=== PATIENT | female | born 1960 | race Caucasian/White ===

== ENCOUNTER 2021-09-21 11:07 | Outpatient (REF) | payer OTHER, SELFPAY ==
--- NOTE | 2021-09-21 10:30 | PAPFT_PTH ---
PATIENT: Laura Jeffries LOC: [facility] U#:[id number] AGE/SX: 61/F ROOM: RE09/21/[address]: Yvonne Nair : 1960 BED: DIS: 09/21/2021 SPEC #: [id number] RECD: 09/24/21 13:08 STATUS: ANEESH REHarlan #: [id number] PRINCE: 09/21/21 10:[address]: Yvonne Nair DEPT: [facility] Cytology RECD BY: Effie Spencer ENTERED: 09/24/21 13:08 SP TYPE: PAPFT OTHR DR: John Javier Tissues: 1 - CX/ENDOCX FOR PAP SMEARS Procedures: PAP THIN PREP/UVM Screening HPV DNA PROBE Comments: [id number]
[2021-09-21 20:45] LABS: ALT 29 U/L (14-59); AST 16 U/L (15-37); Albumin 4.2 g/dL (3.4-5.0); Alkaline Phosphatase 58 U/L (46-116); Anion Gap 7.9 mmol/L (3-11); BUN 14 mg/dL (7-18); Bilirubin, Total 0.6 mg/dL (0.2-1.0); CO2 30.1 mmol/L (21.0-32.0); CREATININE 0.8 mg/dL (0.55-1.02); Calcium 9.3 mg/dL (8.5-10.1); Chloride 104 mmol/L (98-107); Glucose 97 mg/dL (74-106); LDL CHOLESTEROL 131 mg/dL (<100); Potassium 4.9 mmol/L (3.5-5.1); Sodium 142 mmol/L (136-145); Total Protein 7.7 g/dL (6.4-8.2)
== END 2021-09-21 11:08 | disposition home or self-care (01) ==
LOC: NCHCN 11:07
PROVIDERS: PCP Internal Medicine; Visit Provider Physician Assistant
DX: R73.03 Prediabetes (principal); E66.3 Overweight; Z12.4 Encounter for screening for malignant neoplasm of cervix; Z11.51 Encounter for screening for human papillomavirus (HPV)
CPT/HCPCS: 80053; 83721; 88142; 87624

== ENCOUNTER 2022-03-22 19:39 | Outpatient (REF) | payer OTHER, SELFPAY | END 2022-03-22 19:40 | disposition home or self-care (01) | LOC: NCHCN 19:39 | PROVIDERS: PCP Internal Medicine; Visit Provider Physician Assistant | CPT/HCPCS: 80061 ==

== ENCOUNTER 2022-03-29 19:02 | Outpatient (REF) | payer OTHER, SELFPAY ==
[2022-03-29 19:28] LABS: Calculated LDL 116 mg/dL (<100); Cholesterol 183 mg/dL (<200); HDL Cholesterol 44 mg/dL (40-60); Triglyceride 117 mg/dL (<150)
== END 2022-03-29 19:03 | disposition home or self-care (01) ==
LOC: NCHCN 19:02
PROVIDERS: PCP Internal Medicine; Visit Provider Physician Assistant
DX: R73.03 Prediabetes (principal); E78.5 Hyperlipidemia, unspecified
CPT/HCPCS: 80061

== ENCOUNTER 2022-09-24 20:52 | Outpatient (REF) | payer OTHER, SELFPAY ==
[2022-09-24 19:44] LABS: ALT 25 U/L (14-59); AST 20 U/L (15-37); Albumin 4.2 g/dL (3.4-5.0); Alkaline Phosphatase 52 U/L (46-116); Anion Gap 7.7 mmol/L (3-11); BUN 14 mg/dL (7-18); Bilirubin, Total 0.7 mg/dL (0.2-1.0); CO2 28.3 mmol/L (21.0-32.0); CREATININE 0.8 mg/dL (0.55-1.02); Calcium 9.2 mg/dL (8.5-10.1); Calculated LDL 121 mg/dL (<100); Chloride 102 mmol/L (98-107); Cholesterol 189 mg/dL (<200); Estimated GFR 83.78 (mL/min/1.73m2); Glucose 106 mg/dL (74-106); HDL Cholesterol 50 mg/dL (40-60); Potassium 4.4 mmol/L (3.5-5.1); Sodium 138 mmol/L (136-145); Total Protein 8.2 g/dL (6.4-8.2); Triglyceride 91 mg/dL (<150)
== END 2022-09-24 20:53 | disposition home or self-care (01) ==
LOC: NCHCN 20:52
PROVIDERS: PCP Internal Medicine; Visit Provider Physician Assistant
DX: E66.3 Overweight (principal); R73.03 Prediabetes; Z00.00 Encounter for general adult medical examination without abnormal findings
CPT/HCPCS: 80053; 80061

== ENCOUNTER 2022-12-16 11:45 | Day surgery (SDC) | payer OTHER, SELFPAY ==
--- NOTE | 2022-12-16 11:03 | ANES.PREOP_ITS ---
General Info Date of Service Date Performed: 12/16/22 Height: 5 ft 4 in Weight: 84.368 kg Body Mass Index (BMI): 31.9 Surgical Procedure: Operation Date: 12/16/22 15:40 Proposed Procedure Side Surgeon p Cataract Extraction with IOL Implant Left Sage Carrington MD Meds Allergies and Home Medications Allergies Allergy/AdvReac Type Severity Reaction Status Date / Time No Known Allergies Allergy Unverified 12/13/22 12:08 Home Medication Medication Instructions Recorded naproxen sodium 220 mg tablet 440 mg PO DIRECTED PRN 12/12/22 (Aleve) triamcinolone acetonide 0.1 % 1 applic topical BID PRN 12/12/22 topical cream psyllium packet 12/16/22 Current Visit Medications: Current Medications Generic Name Dose Route Start Last Admin Trade Name Freq PRN Reason Stop Dose Admin Acetaminophen 1,000 mg 12/16/22 06:00 Acetaminophen 500 Mg Tab PO Q4H PRN PRN Miscellaneous Medication 0 ml 12/16/22 06:00 Tropicam./Phenyleph. (1/2.5%) 5 Ml Btl OS DIRECTED LORENZO Miscellaneous Medication 0 ml 12/16/22 06:00 Prednisolone 1%, Moxifloxacin 0.5%, Nepafenac 0.1% 5ml Btl OS DIRECTED LORENZO Tetracaine HCl 0 ml 12/16/22 06:00 Tetracaine 0.5% 4 Ml Btl OS DIRECTED LORENZO PFSH Active Problems Active Problems: Problem Status Onset Code Nuclear sclerotic cataract of left eye H25.12 Medical History Medical History (Updated 12/15/22 @ 12:51 by Sage Carrington MD) COVID 11/23/22 Hx of smoking Prediabetes Vaginal prolapse Surgical History Surgical History (Updated 12/13/22 @ 12:07 by Emilio Huitron) Hx of cholecystectomy Hx of eye surgery macular hole repair Hx of tubal ligation Tobacco Smoking/Tobacco Use Status: Current every day Tobacco Type: cigarettes Alcohol Alcohol Intake: never Substance Use Substance use: Never Substance use type: does not use Vital Signs and Lab Results Lab Results Blood Type / Crossmatch: No Data to Display Complete Blood Count: No Data to Display Complete Metabolic Panel: No Data to Display Liver Function Panel: No Data to Display Coagulation Panel: No Data to Display Cardiac Panel: No Data to Display Arterial Blood Gas: 2 No Data to Display Venous Blood Gas: No Data to Display Pancreas Panel: No Data to Display Thyroid Panel: No Data to Display Infectious Disease: No Data to Display Blood Cultures: No Data to Display Toxicology Panel: No Data to Display Anesthesia Assessment and Plan Anesthesia History Personal History: No History of Anesthesia Complications Family History: No Family History of Anesthesia Complications Exercise Tolerance Exercise Tolerance: Metabolic Equivalents>4 Cardiac & Pulmonary Exam Cardiac Exam: Normal S1/S2 Heart Sounds Pulmonary Exam: Clear Bilateral Breath Sounds Implantable Cardiac Device Does patient have a Pacemaker or an ICD?: No Airway Exam Known Difficult Airway: No Mallampati Class: 2 Mouth Opening: Normal (> 3cm) Thyromental Distance: Greater than 3 cm Neck Range of Motion: Full ROM Neck Circumference: Normal Teeth Condition: Removable Dentures/Plates Upper, Removable Dentures/Plates Lower and Edentulous ASA Classification ASA Score: ASA 2 Emergency Case?: No NPO Status NPO Status: NPO Clears >2 hours, Solids >8 hours Anesthesia Plan Resuscitation Status: Full Code Anesthesia Technique: MAC Anesthesia Airway Planned: Natural Airway Monitors Used: Standard Monitors Preoperative Comments:: 62 yo female for cataract removal. Sig PMHx: preDM (last a1c <5.), COVID (11/23/22), daily smoker, never ETOH.
[2022-12-16 12:26] VITALS: BP 152/68; PULSE 77; RESP 16; TEMP 36.3; O2SAT 100
[2022-12-16 12:37] VITALS: BMI 31.9
[2022-12-16] MEDS: Tropicam./Phenyleph. (1/2.5%) 5 ML BTL OS ×3 (12:40→12:50)
[2022-12-16] MEDS: Trypan Blue 0.06% 0.5 ML SYR (13:30)
[2022-12-16] MEDS: Tetracaine 0.5% 4 ML BTL OS (13:31)
[2022-12-16] MEDS: Duovisc Viscoelastic System EACH 1 EACH (13:32)
[2022-12-16] MEDS: Balanced Salt Soln.-PLUS 500 ML BAG (13:32)
[2022-12-16] MEDS: Lidocaine 1% Pres-Free 5 ML VIAL (13:33)
[2022-12-16] MEDS: Lidocaine 2% Jelly 6 ML SYR (13:33)
[2022-12-16] MEDS: Povidone-Iodine Ophth 30 ML BTL (13:34)
[2022-12-16 14:00] VITALS: BP 134/53; PULSE 76; RESP 16; TEMP 36.6; O2SAT 98
--- NOTE | 2022-12-16 14:02 | W.PM.DSUDISC ---
Date of service: 12/16/22 Time of Service: 14:02 Discharge Plan Disposition Patient Disposition: Home Discharge Details Attending Provider: Sage Carrington Primary Care Provider: John Javier Home Meds and New Rx's Prescriptions: No Action triamcinolone acetonide 0.1 % cream 1 applic TOPICAL BID PRN Patient Comments: APPLY A SMALL AMOUNT TO AFFECTED AREA(S) TWO TIMES A DAY FOR UP TO 2 WEEKS, IF RESOLVES MORE QUICKLY, STOP THE CREAM naproxen sodium [Aleve] 220 mg Tablet 440 mg PO DIRECTED PRN Metamucil Packet Discharge Instructions Stand Alone Forms: Post-op Topical Cataract, Julian Burrelley (DSU) Discharge Orders Discharge Orders: Discharge Order (Routine); Ordered 12/16/22 Ordered By: Sage Carrington DS: Diagnosis Discharge Diagnosis (1) Posterior subcapsular age-related cataract of left eye: Status: Resolved (2) Nuclear sclerotic cataract of left eye: Status: Resolved
--- NOTE | 2022-12-16 14:03 | ROE_ITS ---
Date of service: 12/16/22 Time of Service: 14:03 Operative Note Operative Note DATE OF PROCEDURE: 12/16/22 PRE-OP DIAGNOSIS: Nuclear cataract, left eye Status post pars plana vitrectomy/endolaser/gas, left eye POST-OP DIAGNOSIS: same PROCEDURE: Cataract extraction using phacoemulsification with intraocular lens implant, left eye, using capsular staining with Vision Blue Implantation of capsular tension ring, left eye SURGEON: Sage Carrington ANESTHESIA TYPE: Local By Surgeon and MAC Refer to Anesthesia Record COMPLICATIONS: None Patient was transported to: same day Patient's condition: stable Implants: Júnior and Júnior /Júnior and Júnior Sensar AR40e Morcher Type 15B capsular tension ring Indications: Progressive decreased vision due to cataract, left eye, with poor red reflex Procedure Description: CATARACT SURGERY OPERATIVE REPORT PREOPERATIVE DIAGNOSIS: 1. Nuclear cataract, left eye 2. Poor red reflex secondary to #1 POSTOPERATIVE DIAGNOSIS: Same OPERATION: 1. Cataract extraction using phacoemulsification with posterior chamber intraocular lens implant, left eye. 2. Capsular staining with Vision Blue 3. Implantation of capsular tension ring, left eye IOL: IOL Nipple Threader/Model: Júnior and Júnior Sensar AR40e IOL Power: + 11.0 diopters IOL Serial Number: [id number] Optic Diameter: 6.0 mm Haptic/Overall Diameter: 13.0 mm PHACO INFO: Luis Carlos [employer] Vision System with OZil and Active Fluidics Cumulative Dispersed Energy (CDE): 11.96 seconds SURGEON: Sage Carrington MD, PAN ANESTHESIA: Monitored A [facility] ([facility] [place]), with local sub-tenon's anesthetic infiltration COMPLICATIONS: None SPECIMENS: None INDICATIONS FOR PROCEDURE: The patient is a 62-year-old lady with history of high myopia who is previously suffered a retinal detachment in the left eye and has undergone pars plana vitrectomy/endolaser/gas in 2019. She has now developed a dense nuclear cataract in the left eye. She desires cataract surgery and attempt to improve and maximize her vision, although she understands that postoperative visual acuity will be limited by the presence of her pre-existing retinal detachment. The option of cataract surgery was offered to the patient and she wished to proceed. PROCEDURE: The correct surgical eye was identified and marked as the left eye and the pupil was dilated in the preoperative area using mydriatics and cyclopl egics. The dilated pupil size was 6.5 mm. Oral sedation was administered in the form of an Imprimis MKO Melt (midazolam 3mg/ketamine 25mg/ondansetron 2mg). The patient was brought to the operating room where cardiopulmonary monitoring was instituted and surgical time-out was performed, confirming the correct operative eye and IOL power. Topical anesthesia was administered and ophthalmic povidone-iodine 5% was instilled into the conjunctival fornices. Lidocaine gel was applied to the cornea and the carmel-ocular area was prepped with Betadine 10% solution and draped in the usual sterile fashion for intraocular surgery, including an aperture drape. A Tegaderm transparent film dressing was cut in half and used to cover the lashes and lid margins. Care was taken to sequester the lashes and lid margins under the Tegaderm dressing. A lid speculum was placed between the lids of the operative eye and the Luis Carlos LuxOR Revalia operating microscope was maneuvered into position. Adelfo scissors were then used to make a conjunctival buttonhole approximately 6mm posterior to the limbus in the inferonasal quadrant. Blunt dissection was carried out to expose bare sclera, and a blunt-tipped sub-tenon?s anesthesia cannula was introduced and passed posteriorly along the globe where non- preserved plain lidocaine was injected into posterior sub-Tenon?s space. A sideport knife was used to make a paracentesis port superiorly/superiortemporally. Intraocular phenylephrine/lidocaine was injected int the anterior chamber.. Air was then injected into the anterior chamber, followed by Vision Blue, which was painted over the anterior capsule and then irrigated out using BSS. The anterior chamber was filled with viscoelastic. A keratome knife was used to create a 2-plane near clear corneal tunnel extending approximately 2 mm into clear cornea temporally. A flap was raised on the anterior capsule and capsulorhexis forceps were used to complete a continuous curvilinear capsulorhexis of 5.0 mm. The capsule was noted to be extremely thin with significant generalized zonular laxity. The anterior chamber was very deep. Balanced salt solution was then used to perform cortical cleaving hydrodissection and nuclear hydrodelineation until the lens could be freely rotated within the capsular bag. The lens nucleus was then disassembled and removed within the capsular bag and iris plane using phacoemulsification. Residual cortical material was removed using the 45-degree angled silicone I/A tip with 0.3mm port. The posterior capsule was carefully polished to remove as much residual lens epithelial cells as safely possible. The capsular bag was then inflated and the anterior chamber deepened with viscoelastic and the main incision enlarged slightly. A Morcher Type 15B capsular tension ring was inserted into the capsular bag. The lens implant described above was inserted into the capsular bag using the MARY [place] Injector. A Kuglen hook was used to dial the IOL into position. Residual viscoelastic was then removed first from posterior to the IOL, then from the anterior chamber using the I/A handpiece. The lens implant was noted to center nicely within the capsular bag. The incisions were stromally hydrated, and the anterior chamber was reformed using BSS. Then 0.5cc of moxifloxacin 1.0mg/ml were injected into the capsular bag and anterior chamber. The incis ions were checked with a Weck spear and found to be secure. Several drops of ophthalmic povidone-iodine 5% were then applied to the eye followed by two drops of Imprimis combination prednisolone/moxifloxacin/nepafenac solution. The drapes were removed and a clear plastic protective eye shield was placed over the eye. The patient was then returned to Same Day Surgery in stable condition.
[2022-12-16 14:21] VITALS: BP 146/73; PULSE 77; RESP 16; TEMP 36.5; O2SAT 97
--- NOTE | 2022-12-16 14:25 | W.ANESPOSTOP ---
Postoperative Evaluation Date, Time and Location Date Performed: 12/16/22 Time Performed: 14:25 Patient Location: Day Surgery Unit Vital Signs Most Recent Imported Vital Signs: Most Recent Vital Signs Temp Pulse Resp BP Pulse Ox 36.6 C 76 16 134/53 L 98 12/16/22 14:00 12/16/22 14:00 12/16/22 14:00 12/16/22 14:00 12/16/22 14:00 Pain Score Most Recent Pain Score: Most Recent Pain Score Pain Level 0 12/16/22 14:00 Assessment Mental Status: Awake (Alert & Oriented to Patient Baseline) Airway and Respiratory Function: Patent airway with normal (patient baseline) respiratory exam Cardiovascular Function: Hemodynamically Stable Hydration Status: Adequately Hydrated Nausea & Vomiting: No Nausea or Vomiting Pain: Pt. Denies Any Pain Peripheral Nerve Block: Patient did not receive a nerve block
== END 2022-12-16 14:33 | disposition home or self-care (01) ==
PROVIDERS: PCP Internal Medicine; Visit Provider Ophthalmology
PROC: (CPT 66982; principal; 2022-12-16 15:30)
DX: H25.042 Posterior subcapsular polar age-related cataract, left eye (principal); H26.8 Other specified cataract
CPT/HCPCS: 66982; V2632

== ENCOUNTER 2022-12-30 10:59 | Day surgery (SDC) | payer OTHER, SELFPAY ==
--- NOTE | 2022-12-30 07:02 | ANES.PREOP_ITS ---
General Info Date of Service Date Performed: 12/30/22 Height: 5 ft 4 in Weight: 84.5 kg Body Mass Index (BMI): 31.9 Surgical Procedure: Operation Date: 12/30/22 14:40 Proposed Procedure Side Surgeon p Cataract Extraction with IOL Implant Right Sage Carrington MD Meds Allergies and Home Medications Allergies Allergy/AdvReac Type Severity Reaction Status Date / Time No Known Allergies Allergy Unverified 12/30/22 11:28 Home Medication Medication Instructions Recorded naproxen sodium 220 mg tablet 440 mg PO DIRECTED PRN 12/12/22 (Aleve) triamcinolone acetonide 0.1 % 1 applic topical BID PRN 12/12/22 topical cream psyllium 1 packet PO DIRECTED 12/16/22 Current Visit Medications: Current Medications Generic Name Dose Route Start Last Admin Trade Name Freq PRN Reason Stop Dose Admin Acetaminophen 1,000 mg 12/30/22 06:00 Acetaminophen 500 Mg Tab PO Q4H PRN PRN Miscellaneous Medication 0 ml 12/30/22 06:00 Tropicam./Phenyleph. (1/2.5%) 5 Ml Btl OD DIRECTED [facility] Miscellaneous Medication 0 ml 12/30/22 06:00 Prednisolone 1%, Moxifloxacin 0.5%, Nepafenac 0.1% 5ml Btl OD DIRECTED LORENZO Tetracaine HCl 0 ml 12/30/22 06:00 Tetracaine 0.5% 4 Ml Btl OD DIRECTED [facility] PFSH Active Problems Active Problems: Problem Status Onset Code Nuclear age-related cataract, right eye H25.11 Posterior subcapsular age-related cataract of left eye H25.042 Nuclear sclerotic cataract of left eye H25.12 Medical History Medical History COVID 11/23/22 Hx of smoking Prediabetes Vaginal prolapse Surgical History Surgical History Hx of cholecystectomy Hx of eye surgery macular hole repair Hx of tubal ligation Tobacco Smoking/Tobacco Use Status: Current every day Tobacco Type: cigarettes Smoking cigarettes per day: 10 Alcohol Alcohol Intake: never Substance Use Substance use: Never Substance use type: does not use Vital Signs and Lab Results Vital Signs Most Recent Vital Signs in EMR: Temp Pulse Resp BP Pulse Ox 36.5 C 82 16 135/70 97 12/30/22 11:35 12/30/22 11:35 12/30/22 11:35 12/30/22 11:35 12/30/22 11:35 Lab Results Blood Type / Crossmatch: No Data to Display Complete Blood Count: No Data to Display Complete Metabolic Panel: No Data to Display Liver Function Panel: No Data to Display Coagulation Panel: No Data to Display Cardiac Panel: No Data to Display Arterial Blood Gas: No Data to Display Venous Blood Gas: No Data to Display Pancreas Panel: No Data to Display Thyroid Panel: No Data to Display Infectious Disease: No Data to Display Blood Cultures: No Data to Display Toxicology Panel: No Data to Display Anesthesia Assessment and Plan Anesthesia History Personal History: No History of Anesthesia Complications Family History: No Family History of Anesthesia Complications Exercise Tolerance Exercise Tolerance: Metabolic Equivalents>4 Cardiac & Pulmonary Exam Cardiac Exam: Normal S1/S2 Heart Sounds Pulmonary Exam: Clear Bilateral Breath Sounds Implantable Cardiac Device Does patient have a Pacemaker or an ICD?: No Airway Exam Known Difficult Airway: No Mallampati Class: 2 Mouth Opening: Normal (> 3cm) Thyromental Distance: Greater than 3 cm Neck Range of Motion: Full ROM Neck Circumference: Normal Teeth Condition: Removable Dentures/Plates Upper, Removable Dentures/Plates Lower and Edentulous ASA Classification ASA Score: ASA 2 Emergency Case?: No NPO Status NPO Status: NPO Clears >2 hours, Solids >8 hours Anesthesia Plan Resuscitation Status: Full Code Anesthesia Technique: MAC Anesthesia Airway Planned: Natural Airway Monitors Used: Standard Monitors Preoperative Comments:: 62 yo female for repeat cataract removal. no health history change. Sig PMHx: preDM (last a1c <5.), COVID (11/23/22), daily smoker, never ETOH. previous cat: had MKO. would like MKO.
[2022-12-30 11:31] VITALS: BMI 31.9
[2022-12-30] MEDS: Tropicam./Phenyleph. (1/2.5%) 5 ML BTL OD ×3 (11:34→11:55)
[2022-12-30 11:35] VITALS: BP 135/70; PULSE 82; RESP 16; TEMP 36.5; O2SAT 97
[2022-12-30] MEDS: Tetracaine 0.5% 4 ML BTL OD (12:44)
[2022-12-30] MEDS: Duovisc Viscoelastic System EACH 1 EACH (12:45)
[2022-12-30] MEDS: Balanced Salt Soln.-PLUS 500 ML BAG (12:45)
[2022-12-30] MEDS: Lidocaine 2% Jelly 6 ML SYR (12:47)
[2022-12-30] MEDS: Phenylephrine/Lidocaine (15/10) MG/ML 1 ML VIAL (12:47)
[2022-12-30] MEDS: Povidone-Iodine Ophth 30 ML BTL (12:48)
[2022-12-30 13:01] VITALS: BP 130/68; PULSE 76; RESP 16; TEMP 36.1; O2SAT 97
--- NOTE | 2022-12-30 13:02 | W.PM.DSUDISC ---
Date of service: 12/30/22 Time of Service: 13:02 Discharge Plan Disposition Patient Disposition: Home Discharge Details Attending Provider: Sage Carrington Primary Care Provider: John Javier Home Meds and New Rx's Prescriptions: No Action triamcinolone acetonide 0.1 % cream 1 applic TOPICAL BID PRN Patient Comments: APPLY A SMALL AMOUNT TO AFFECTED AREA(S) TWO TIMES A DAY FOR UP TO 2 WEEKS, IF RESOLVES MORE QUICKLY, STOP THE CREAM naproxen sodium [Aleve] 220 mg Tablet 440 mg PO DIRECTED PRN Metamucil Packet 1 packet PO DIRECTED Discharge Instructions Stand Alone Forms: Post-op Topical Cataract, Julian Huitron (DSU) Discharge Orders Discharge Orders: Discharge Order (Routine); Ordered 12/30/22 Ordered By: Sage Carrington DS: Diagnosis Discharge Diagnosis (1) Nuclear age-related cataract, right eye: Status: Resolved
--- NOTE | 2022-12-30 13:03 | ROE_ITS ---
Date of service: 12/30/22 Time of Service: 13:03 Operative Note Operative Note DATE OF PROCEDURE: 12/30/22 PRE-OP DIAGNOSIS: Nuclear cataract, right eye high myopia, right eye POST-OP DIAGNOSIS: same PROCEDURE: Cataract extraction using phacoemulsification with intraocular lens implant, right eye SURGEON: Sage Carrington ANESTHESIA TYPE: Local By Surgeon and MAC Refer to Anesthesia Record ESTIMATED BLOOD LOSS: 0 PATHOLOGY: none sent COMPLICATIONS: None Patient was transported to: same day Patient's condition: stable Implants: Júnior & Júnior Sensar AR40e Indications: Progressive visual loss due to cataract, right eye Procedure Description: CATARACT SURGERY OPERATIVE REPORT PREOPERATIVE DIAGNOSIS: 1. Nuclear cataract, right eye 2. High myopia, right eye POSTOPERATIVE DIAGNOSIS: Same OPERATION: 1. Cataract extraction using phacoemulsification with posterior chamber intraocular lens implant, right eye. IOL: IOL Virtual Reality Specialist/Model: Júnior & Júnior Sensar AR40e IOL Power: + 6.5 diopters IOL Serial Number: [id number] Optic Diameter: 6.0mm Haptic/Overall Diameter: 13.0mm PHACO INFO: Luis Carlos All My Dataurion Vision System with OZil and Active Fluidics Cumulative Dispersed Energy (CDE): 2.31 seconds SURGEON: Sage Carrington MD, PAN ANESTHESIA: Monitored Anesthesia Care (MAC), with local sub-tenon's anesthetic infiltration COMPLICATIONS: None SPECIMENS: None INDICATIONS FOR PROCEDURE: The patient is a 62-year-old lady with history of high myopia who has previously undergone pars plana vitrectomy in her left eye and subsequently developed a significant cataract. She underwent cataract surgery in the left eye with p ostoperative refractive target of -2.75 diopters. Originally, her myopic refraction was over -10 diopters. She now has significant anisometropia and presents for cataract surgery in the right eye, with postoperative refractive target of -2.75 diopters. PROCEDURE: The correct surgical eye was identified and marked as the right eye and the pupil was dilated in the preoperative area using mydriatics and cycloplegics. The dilated pupil size was [] mm. Oral sedation was administered in the form of an Imprimis MKO Melt (midazolam 3mg/ketamine 25mg/ondansetron 2mg). The patient was brought to the operating room where cardiopulmonary monitoring was instituted and surgical time-out was performed, confirming the correct operative eye and IOL power. Topical anesthesia was administered and ophthalmic povidone-iodine 5% was instilled into the conjunctival fornices. Lidocaine gel was applied to the cornea and the carmel-ocular area was prepped with Betadine 10% solution and draped in the usual sterile fashion for intraocular surgery, including an aperture drape. A Tegaderm transparent film dressing was cut in half and used to cover the lashes and lid margins. Care was taken to sequester the lashes and lid margins under the Tegaderm dressing. A lid speculum was placed between the lids of the operative eye and the Luis Carlos LuxOR Revalia operating microscope was maneuvered into position. Adelfo scissors were then used to make a conjunctival buttonhole approximately 6mm posterior to the limbus in the inferonasal quadrant. Blunt dissection was carried out to expose bare sclera, and a blunt-tipped sub-tenon?s anesthesia cannula was introduced and passed posteriorly along the globe where non- preserved plain lidocaine was injected into posterior sub-Tenon?s space. A sideport knife was used to make a paracentesis port inferotemporally. Intraocular phenylephrine/lidocaine was injected into the anterior chamber. The anterior chamber was filled with viscoelastic. A keratome knife was used to construct a 2-plane near-clear corneal tunnel extending 2.0mm into clear cornea superiortemporally. A flap was raised on the anterior capsule and capsulorhexis forceps were used to complete a continuous curvilinear capsulorhexis of 5.0 mm. Balanced salt solution was then used to perform cortical cleaving hydrodissection and nuclear hydrodelineation until the lens could be freely rotated within the capsular bag. The lens nucleus was then disassembled and removed within the capsular bag and iris plane using phacoemulsification. Residual cortical material was removed using the I/A handpiece. The posterior capsule was carefully polished to remove as much residual lens epithelial cells as safely possible. The capsular bag was then inflated and the anterior chamber deepened with viscoelastic. The lens implant described above was inserted into the capsular bag using the Júnior and B[employer]al [place] injector. A Kuglen hook was used to dial the IOL into position. Residual viscoelastic was then removed first from posterior to the IOL, then from the anterior chamber using the I/A handpiece. The IOL was rotated for best centration, with the haptics at approximately 3 and 9 o'clock position. The lens implant was noted to center nicely within the capsular bag. The incisions were stromally hydrated, and the anterior chamber was reformed using BSS. Then 0.5cc of moxifloxacin 1.0mg/ml were injected into the capsular bag and anterior chamber. The incisions were checked with a Weck spear and found to be secure. Several drops of ophthalmic povidone-iodine 5% were then applied to the eye followed by two drops of Imprimis combination prednisolone/moxifloxacin/nepafenac solution. The drapes were removed and a clear plastic protective eye shield was placed over the eye. The patient was then returned to Same Day Surgery in stable condition.
--- NOTE | 2022-12-30 13:16 | W.ANESPOSTOP ---
Postoperative Evaluation Date, Time and Location Date Performed: 12/30/22 Time Performed: 13:00 Patient Location: Day Surgery Unit Vital Signs Most Recent Imported Vital Signs: Most Recent Vital Signs Temp Pulse Resp BP Pulse Ox 36.1 C L 76 16 130/68 97 12/30/22 13:01 12/30/22 13:01 12/30/22 13:01 12/30/22 13:01 12/30/22 13:01 Pain Score Most Recent Pain Score: Most Recent Pain Score Pain Level 0 12/30/22 13:01 Assessment Mental Status: Awake (Alert & Oriented to Patient Baseline) Airway and Respiratory Function: Patent airway with normal (patient baseline) respiratory exam Cardiovascular Function: Hemodynamically Stable Hydration Status: Adequately Hydrated Nausea & Vomiting: No Nausea or Vomiting Pain: Pt. Denies Any Pain Peripheral Nerve Block: Patient did not receive a nerve block
[2022-12-30 13:27] VITALS: BP 140/76; PULSE 86; RESP 16; TEMP 36.1; O2SAT 97
== END 2022-12-30 13:33 | disposition home or self-care (01) ==
LOC: SUR 10:59
PROVIDERS: PCP Internal Medicine; Visit Provider Ophthalmology
PROC: (CPT 66984; principal; 2022-12-30 14:30)
DX: H25.11 Age-related nuclear cataract, right eye (principal)
CPT/HCPCS: 66984; V2632

== ENCOUNTER 2024-07-22 15:38 | Outpatient (REF) | payer OTHER, SELFPAY ==
[2024-07-22 22:56] LABS: ALT 41 U/L (14-59); AST 25 U/L (15-37); Albumin 4.1 g/dL (3.4-5.0); Alkaline Phosphatase 65 U/L (46-116); Anion Gap 10.6 mmol/L (3-11); BUN 15 mg/dL (7-18); Bilirubin, Total 0.79 mg/dL (0.2-1.0); CO2 26.4 mmol/L (21.0-32.0); CREATININE 0.7 mg/dL (0.55-1.02); Calcium 9.7 mg/dL (8.5-10.1); Chloride 105 mmol/L (98-107); Estimated GFR 97.72 (mL/min/1.73m2); Glucose 118 mg/dL (74-106); LDL CHOLESTEROL 49 mg/dL (<100); Potassium 4.3 mmol/L (3.5-5.1); Sodium 142 mmol/L (136-145); Total Protein 7.6 g/dL (6.4-8.2)
== END 2024-07-22 15:39 | disposition home or self-care (01) ==
LOC: NCHCN 15:38
PROVIDERS: PCP Internal Medicine; Visit Provider Physician Assistant
DX: E78.5 Hyperlipidemia, unspecified (principal)
CPT/HCPCS: 80053; 83721

== ENCOUNTER 2025-08-05 18:46 | Outpatient (REF) | payer BC, SELFPAY ==
[2025-08-05 19:53] LABS: ALT 34 U/L (14-59); AST 27 U/L (15-37); Albumin 4.2 g/dL (3.4-5.0); Alkaline Phosphatase 54 U/L (46-116); Anion Gap 9.2 mmol/L (3-11); BUN 15 mg/dL (7-18); Bilirubin, Total 0.9 mg/dL (0.2-1.0); CO2 29.8 mmol/L (21.0-32.0); Calcium 9.3 mg/dL (8.5-10.1); Calculated LDL 47 mg/dL (<100); Chloride 103 mmol/L (98-107); Cholesterol 105 mg/dL (<200); Estimated GFR 97.12 (mL/min/1.73m2); Glucose 121 mg/dL (74-106); HDL Cholesterol 44 mg/dL (>or=50); Potassium 4.5 mmol/L (3.5-5.1); Sodium 142 mmol/L (136-145); Total Protein 7.8 g/dL (6.4-8.2); Triglyceride 70 mg/dL (<150)
[2025-08-08 10:01] LABS: Hepatitis C Ab w Rflx HCV PCR Negative (Negative)
[2025-08-08 10:09] LABS: HIV-1/2 Ag & Ab Screen Negative (Negative)
== END 2025-08-05 18:47 | disposition home or self-care (01) ==
LOC: NCHCN 18:46
PROVIDERS: PCP Internal Medicine; Visit Provider Physician Assistant
DX: E78.5 Hyperlipidemia, unspecified (principal); Z11.59 Encounter for screening for other viral diseases; Z11.4 Encounter for screening for human immunodeficiency virus [HIV]
CPT/HCPCS: 80053; 80061; 86803; 87389